=== PATIENT | male | born 1985 | race Caucasian/White ===

== ENCOUNTER 2018-02-28 21:10 | Emergency (ER) | payer SELFPAY ==
--- NOTE | 2018-02-28 21:57 | EDM.PDOC ---
ED HPI GENERAL MEDICAL PROBLEM - General Chief Complaint: General Stated Complaint: RIGHT LEG PAIN Time Seen by Provider: 02/28/18 21:45 Source of Information: Reports: Patient History Limitations: Reports: No Limitations - History of Present Illness INITIAL COMMENTS - FREE TEXT/NARRATIVE: Patient presents with complaints of right lower leg discomfort and numbness. States hasn't felt quite right for the last 8 hours. He hasn't noted any swelling. Denies any back pain. Does do a lot of weight lifting but denies knowing of any recent injury or strain. Does note the discomfort radiates up to his outer thigh. Has been travelling in a car much of the day today but otherwise no recent flights. Is concerned about a blood clot as his father suddenly from one a few months ago. He has been feeling well otherwise. No significant PMH. Onset: Today Duration: Hour(s): Location: Reports: Lower Extremity, Right Quality: Reports: Ache Severity: Mild Improves with: Reports: None Associated Symptoms: Denies: Chest Pain, Cough, Nausea/Vomiting, Shortness of Breath, Weakness - Related Data Allergies Allergy/AdvReac Type Severity Reaction Status Date / Time No Known Allergies Allergy Verified 02/28/18 21:20 Home Meds: Home Meds . [No Known Home Meds] 02/28/18 [History] Past Medical History - Past Health History Medical/Surgical History: Denies Medical/Surgical History - Past Surgical History GI Surgical History: Reports: Other (See Below) Social & Family History - Family History Cardiac: Reports: Blood Clots/VTE/DVT - Tobacco Use Smoking Status *Q: Never Smoker Second Hand Smoke Exposure: No ED ROS GENERAL - Review of Systems Review Of Systems: See Below Constitutional: Denies: Fever, Chills, Malaise, Weakness, Decreased Appetite HEENT: Reports: No Symptoms Respiratory: Denies: Shortness of Breath, Cough Cardiovascular: Denies: Chest Pain, Edema, Lightheadedness Endocrine: Denies: Fatigue GI/Abdominal: Denies: Abdominal Pain, Nausea, Vomiting : Reports: No Symptoms Musculoskeletal: Reports: Leg Pain Skin: Reports: No Symptoms Neurological: Reports: No Symptoms Psychiatric: Reports: No Symptoms ED EXAM, GENERAL - Physical Exam Exam: See Below Exam Limited By: No Limitations General Appearance: Alert, WD/WN, No Apparent Distress Ears: Normal External Exam, Normal TMs Nose: Normal Inspection, Normal Mucosa, No Blood Throat/Mouth: Normal Inspection, Normal Oropharynx Head: Normocephalic Neck: Normal Inspection, Supple, Non-Tender Respiratory/Chest: No Respiratory Distress, Lungs Clear, Normal Breath Sounds Cardiovascular: Regular Rate, Rhythm GI/Abdominal: Normal Bowel Sounds, Soft, Non-Tender Neurological: Alert, Oriented Skin Exam: Warm, Dry Course - Vital Signs Last Recorded V/S: Last Vital Signs Temp 97.8 F 02/28/18 21:21 Pulse 95 02/28/18 21:21 Resp 18 02/28/18 21:21 BP 141/77 H 02/28/18 21:21 Pulse Ox 98 02/28/18 21:21 - Orders/Labs/Meds Labs: Laboratory Tests 02/28/18 Range/Units 21:28 D-Dimer, Quantitative < 0.19 (0.00-0.50) - Re-Assessments/Exams Free Text/Narrative Re-Assessment/Exam: 02/28/18 22:01 d-dimer negative Departure - Departure Time of Disposition: 21:56 Disposition: Home, Self-Care 01 Condition: Good Clinical Impression: Right leg paresthesias - Discharge Information Referrals: Provider,Unknown [Primary Care Provider] - Forms: ED Department Discharge Additional Instructions: 1. Rest 2. Heating pad to leg as needed 3. Ibuprofen 600 mg every 6 hours 4. Follow up if numbness or discomfort continues
== END 2018-02-28 22:15 | disposition home or self-care (01) ==
LOC: CC.ED 21:10
DX: R20.2 Paresthesia of skin (principal)
CPT/HCPCS: 36415; 85379; 99283